=== PATIENT | female | born 1955 | race Caucasian/White ===

== ENCOUNTER 2018-08-10 09:08 | Outpatient (CLI) | payer BC ==
--- NOTE | 2018-08-10 13:34 | CT ---
CT ABDOMEN WITH AND WITHOUT IV CONTRAST: DATE: 08/10/2018. HISTORY: Cirrhosis. The patient is on transplant list. COMPARISON: Noncontrast CT abdomen on 07/09/2010 and prior contrasted study on 08/27/2005. FINDINGS: There are several punctate calcified granulomata at each lung base with linear areas of scarring and/ or atelectasis at each lung base. The liver is small in size with peripheral nodular contour related to cirrhosis. The portal veins de monstrate enhancement and are patent. However, there is dilatation of the main portal vein which jessa sures 1.8 cm in diameter. There is also recanalization of the supraumbilical vein. The spleen is imer rderline enlarged measuring 13.8 cm in craniocaudal dimensions. There is evidence of esophageal vari nancy with small varices in the region of the gastrohepatic ligament and adjacent to the spleen. The pancreas, bilateral adrenal glands, and kidneys as well as opacified bowel demonstrate a normal C T appearance. Vascular calcifications are seen in the abdominal aorta and involving the visualized proximal common iliac arteries. There is colonic diverticulosis. There is irregularity with defect in the superior end plate of the L3 vertebral likely related to a large Schmorl's node. There is a transitional vertebra at the lumbo sacral junction with sacralization of the L5 vertebral body. Calcifications are seen in the decompressed gallbladder lumen related to cholelithiasis. IMPRESSION: 1. Cirrhosis and evidence of portal hypertension. 2. Borderline splenomegaly. 3. Colonic diverticulosis. 4. Cholelithiasis. POS: [facility]
[2018-08-10] MEDS ORDERED: Iopamidol 370 76% 100 ML VIAL ONE (15:03)
== END 2018-08-10 09:09 | disposition home or self-care (01) ==
LOC: BICCT 09:08
PROVIDERS: ATTEND Internal Medicine Gastroenterology
DX: K74.60 Unspecified cirrhosis of liver (principal); K57.30 Diverticulosis of large intestine without perforation or abscess without bleeding; K80.20 Calculus of gallbladder without cholecystitis without obstruction; K76.6 Portal hypertension; Z76.82 Awaiting organ transplant status
CPT/HCPCS: 74170; 82565

== ENCOUNTER 2021-10-10 14:41 | Inpatient (IN) | payer MEDICARE, MEDICAID ==
[2021-10-10 15:28] LABS: #Eosinphils 0.2 thou/uL (0.0-0.7); #Lymphocytes 0.7 thou/uL (1.20-3.40); #Monocytes 0.3 thou/uL (0.11-0.59); #Neutrophils 2.5 thou/uL (1.40-6.50); %Basophils 1.3 % (0.0-1.0); %Eosinophils 5.1 % (0.0-10.0); %Lymphocytes 19.1 % (21.0-51.0); %Monocytes 7.9 % (0.0-10.0); %Neutrophils 66.5 % (42.0-75.0); Hemoglobin 10.4 g/dL (12.0-16.0); Mean Corpuscular HGB CONC 33.3 g/dL (32.0-36.0); Mean Corpuscular Hemoglobin 36.1 pg (27.0-31.0); RBC Distribution Width 15.6 % (11.5-14.5); Red Blood Cell (RBC) Count 2.87 mill/uL (4.20-5.40); White Blood Cell (WBC) Count 3.8 thou/uL (4.8-10.8)
[2021-10-10 15:51] LABS: ALT (SGPT) 19 U/L (8-55); AST (SGOT) 41 U/L (5-34); Albumin 2.2 g/dL (3.4-4.8); Alkaline Phosphatase 122 U/L (40-110); Anion Gap 9 mmol/L (10-20); BUN (Urea Nitrogen) 18 mg/dL (9.8-20.1); Calc. Creatinine Clearance 0 mL/min (70-130); Calcium 8.9 mg/dL (7.8-10.44); Carbon Dioxide 24 mmol/L (23-31); Chloride 112 mmol/L (98-107); Globulin 4.1 g/dL (2.4-3.5); Glucose 180 mg/dL (80-115); Potassium 3.5 mmol/L (3.5-5.1); Protein, Total 6.3 g/dL (5.8-8.1); Sodium 141 mmol/L (136-145)
[2021-10-10 16:03] LABS: Anisocytosis SLIGHT = 6-15 cells (100X) (0-5/hpf); MDiff Complete? YES; Macrocytosis SLIGHT = 6-15 cells (100X) (0-5/hpf); Mean Platelet Volume 7.6 fL (7.4-10.4); Platelet Count 73 thou/uL (130-400); Platelet Morphology Comment Appears Decreased; Polychromasia SLIGHT = 2-3 cells (100X) (0-2/hpf)
[2021-10-10 19:09] LABS: Bacteria/HPF 1+ HPF (None Seen); Bilirubin 1+ (Negative); Blood, Urine Negative (Negative); Clarity Turbid (Clear); Glucose, Urine (Dipstick) 70 mg/dL (Negative); Ketone, Urine Negative (Negative); Leukocyte 75 Leu/uL (Negative); Nitrite 2+ (Negative); Protein, Urine (Dipstick) 30 mg/dL (Neg-Trace); RBC/HPF 0-3 HPF (0-3); Specific Gravity, Urine 1.027 (1.002-1.036); Urobilinogen 3 mg/dL (Less than 2); WBC/HPF 21-50 HPF (0-3); pH, Urine 5.5 (5.0-9.0)
[2021-10-10] MEDS ORDERED: Furosemide 40 MG/4 ML VIAL ONE (19:23)
[2021-10-10] MEDS ORDERED: HYDROcodone/Acetaminophen 5/325 mg Tablet ONE (20:16)
[2021-10-10 21:07] LABS: Troponin I 0.019 ng/mL (< 0.028)
[2021-10-10 23:22] LABS: Troponin I 0.036 ng/mL (< 0.028)
[2021-10-10 23:56] LABS: SARS-CoV-2 NAA Rapid Test Not Detected (NotDetected)
[2021-10-11] MEDS ORDERED: HYDROcodone/Acetaminophen 5/325 mg Tablet ONE (00:11)
[2021-10-11 01:17] VITALS: BMI 37.4
[2021-10-11] MEDS ORDERED: Ondansetron ODT 4 MG TAB PO PRN (02:34)
[2021-10-11] MEDS ORDERED: Dextrose 5% in Water 1,000 ML IV PRN (02:34)
[2021-10-11] MEDS ORDERED: Ondansetron PF 4 MG/2 ML Vial IVP PRN (02:34)
[2021-10-11] MEDS ORDERED: Dextrose 50% Abboject 50 ML SYRINGE SLOW IVP PRN (02:34)
[2021-10-11] MEDS ORDERED: Acetaminophen 325 MG TAB PO PRN (02:34)
[2021-10-11] MEDS ORDERED: HumaLOG 300 UNITS/3 ML VIAL SC PRN ×2 (02:34)
[2021-10-11] MEDS ORDERED: Acetaminophen 650 MG Suppository PR PRN (02:34)
[2021-10-11] MEDS ORDERED: Electrolyte Replacement Protocol 1 EACH FS SCH (02:45)
[2021-10-11] MEDS ORDERED: Potassium Chloride 20 MEQ TAB PO SCH (02:45)
[2021-10-11] MEDS: HYDROcodone/Acetaminophen 10/325 mg Tablet PO PRN ×5 (03:34→23:29)
[2021-10-11 04:47] LABS: #Eosinphils 0.2 thou/uL (0.0-0.7); #Lymphocytes 0.8 thou/uL (1.20-3.40); #Monocytes 0.3 thou/uL (0.11-0.59); #Neutrophils 1.8 thou/uL (1.40-6.50); %Basophils 0.6 % (0.0-1.0); %Eosinophils 6.5 % (0.0-10.0); %Lymphocytes 24.4 % (21.0-51.0); %Monocytes 9.3 % (0.0-10.0); %Neutrophils 59.2 % (42.0-75.0); Hemoglobin 9.4 g/dL (12.0-16.0); Mean Corpuscular HGB CONC 33.3 g/dL (32.0-36.0); Mean Corpuscular Hemoglobin 36.7 pg (27.0-31.0); Mean Platelet Volume 8.2 fL (7.4-10.4); Platelet Count 59 thou/uL (130-400); RBC Distribution Width 15.6 % (11.5-14.5); Red Blood Cell (RBC) Count 2.55 mill/uL (4.20-5.40); White Blood Cell (WBC) Count 3.1 thou/uL (4.8-10.8)
[2021-10-11 05:19] LABS: Anion Gap 9 mmol/L (10-20); BUN (Urea Nitrogen) 16 mg/dL (9.8-20.1); Calc. Creatinine Clearance 58 mL/min (70-130); Calcium 8.5 mg/dL (7.8-10.44); Carbon Dioxide 23 mmol/L (23-31); Chloride 112 mmol/L (98-107); Glucose 168 mg/dL (80-115); Magnesium 1.7 mg/dL (1.6-2.6); Potassium 3.6 mmol/L (3.5-5.1); Sodium 140 mmol/L (136-145)
[2021-10-11] MEDS ORDERED: Magnesium 2 GM/50 ML 2 GM in Premix Bag 1 BAG IVPB SCH (07:00)
[2021-10-11] MEDS ORDERED: Enoxaparin Sodium 40 MG/0.4 ML SYRINGE SC SCH (09:00)
[2021-10-11] MEDS ORDERED: Furosemide 40 MG/4 ML VIAL SLOW IVP SCH ×3 (09:00→14:00)
[2021-10-11 09:22] LABS: Troponin I 0.019 ng/mL (< 0.028)
[2021-10-11] MEDS: Albumin 25% 25 GM/100 ML BOT IVPB SCH ×2 (13:32→18:34)
[2021-10-11] MEDS: Spironolactone 25 MG TAB PO SCH (17:06)
[2021-10-11] MEDS: Folic Acid 1 MG TAB PO SCH (20:51)
[2021-10-12] MEDS: Albumin 25% 25 GM/100 ML BOT IVPB SCH ×3 (00:49→14:04)
[2021-10-12] MEDS: HYDROcodone/Acetaminophen 10/325 mg Tablet PO PRN ×2 (05:31→10:16)
[2021-10-12 05:53] LABS: #Eosinphils 0.1 thou/uL (0.0-0.7); #Lymphocytes 0.4 thou/uL (1.20-3.40); #Monocytes 0.2 thou/uL (0.11-0.59); #Neutrophils 1.8 thou/uL (1.40-6.50); %Eosinophils 4.3 % (0.0-10.0); %Lymphocytes 16.7 % (21.0-51.0); %Monocytes 9.1 % (0.0-10.0); %Neutrophils 69.8 % (42.0-75.0); Hemoglobin 8.5 g/dL (12.0-16.0); Mean Corpuscular Hemoglobin 36.4 pg (27.0-31.0); Mean Platelet Volume 8.5 fL (7.4-10.4); Platelet Count 48 thou/uL (130-400); RBC Distribution Width 15.4 % (11.5-14.5); Red Blood Cell (RBC) Count 2.33 mill/uL (4.20-5.40); White Blood Cell (WBC) Count 2.6 thou/uL (4.8-10.8)
[2021-10-12 06:16] LABS: ALT (SGPT) 15 U/L (8-55); AST (SGOT) 32 U/L (5-34); Albumin 2.6 g/dL (3.4-4.8); Alkaline Phosphatase 68 U/L (40-110); Anion Gap 12 mmol/L (10-20); BUN (Urea Nitrogen) 17 mg/dL (9.8-20.1); Calc. Creatinine Clearance 59 mL/min (70-130); Calcium 9.3 mg/dL (7.8-10.44); Carbon Dioxide 23 mmol/L (23-31); Chloride 109 mmol/L (98-107); Globulin 3.3 g/dL (2.4-3.5); Glucose 168 mg/dL (80-115); Magnesium 1.9 mg/dL (1.6-2.6); Potassium 3.7 mmol/L (3.5-5.1); Protein, Total 5.9 g/dL (5.8-8.1); Sodium 140 mmol/L (136-145)
[2021-10-12] MEDS ORDERED: Potassium Chloride 20 MEQ TAB PO SCH (08:00)
[2021-10-12] MEDS: Folic Acid 1 MG TAB PO SCH (08:58)
[2021-10-12] MEDS: Spironolactone 25 MG TAB PO SCH (08:58)
[2021-10-12] MEDS ORDERED: Furosemide 40 MG/4 ML VIAL SLOW IVP SCH (09:00)
[2021-10-12 11:47] VITALS: BP 115/72; TEMP 97.5
[2021-10-12] MEDS ORDERED: Polyethylene Glycol 3350 17 GM Packet PO SCH (13:45)
[2021-10-13] MEDS ORDERED: Polyethylene Glycol 3350 17 GM Packet PO SCH (09:00)
== END 2021-10-12 16:00 | disposition home or self-care (01) | DRG 432 ==
LOC: ERS 14:41 → ERHOLD 19:52 → NEURO 10-11 00:31
PROVIDERS: ADMIT Student in an Organized Health Care Education/Training Program; ATTEND Internal Medicine
DX: K74.69 Other cirrhosis of liver (principal); I50.33 Acute on chronic diastolic (congestive) heart failure; I13.0 Hypertensive heart and chronic kidney disease with heart failure and stage 1 through stage 4 chronic kidney disease, or unspecified chronic kidney disease; N17.9 Acute kidney failure, unspecified; R18.8 Other ascites; D61.818 Other pancytopenia; Z20.822 Contact with and (suspected) exposure to COVID-19; K76.0 Fatty (change of) liver, not elsewhere classified; E78.5 Hyperlipidemia, unspecified; N18.32 Chronic kidney disease, stage 3b; E11.22 Type 2 diabetes mellitus with diabetic chronic kidney disease; L40.9 Psoriasis, unspecified; E11.69 Type 2 diabetes mellitus with other specified complication; E66.9 Obesity, unspecified; N64.53 Retraction of nipple; E87.6 Hypokalemia; E83.42 Hypomagnesemia; E87.8 Other disorders of electrolyte and fluid balance, not elsewhere classified; I35.0 Nonrheumatic aortic (valve) stenosis; Z87.890 Personal history of sex reassignment; Z88.8 Allergy status to other drugs, medicaments and biological substances; Z79.899 Other long term (current) drug therapy; Z68.39 Body mass index [BMI] 39.0-39.9, adult; Z91.14 Patient's other noncompliance with medication regimen
CPT/HCPCS: 36415; 36416; 71045; 80048; 80053; 81003; 81015; 82607; 82746; 83735; 83880; 84443; 84484; 85025; 93005; 93306; 97139; J1940; J3475; P9047; Q0162; U0002

== ENCOUNTER 2021-10-13 21:24 | Inpatient (IN) | payer MEDICARE, MEDICAID ==
[2021-10-13 22:13] LABS: #Eosinphils 0.1 thou/uL (0.0-0.7); #Lymphocytes 0.5 thou/uL (1.20-3.40); #Monocytes 0.4 thou/uL (0.11-0.59); #Neutrophils 3.8 thou/uL (1.40-6.50); %Basophils 0.2 % (0.0-1.0); %Eosinophils 1.7 % (0.0-10.0); %Lymphocytes 10.9 % (21.0-51.0); %Monocytes 9.2 % (0.0-10.0); %Neutrophils 77.9 % (42.0-75.0); Hemoglobin 9.5 g/dL (12.0-16.0); Mean Corpuscular HGB CONC 32.8 g/dL (32.0-36.0); Mean Corpuscular Hemoglobin 36.4 pg (27.0-31.0); Mean Platelet Volume 8.5 fL (7.4-10.4); Platelet Count 54 thou/uL (130-400); RBC Distribution Width 15.5 % (11.5-14.5); Red Blood Cell (RBC) Count 2.61 mill/uL (4.20-5.40); White Blood Cell (WBC) Count 4.8 thou/uL (4.8-10.8)
[2021-10-13 22:32] LABS: ALT (SGPT) 16 U/L (8-55); AST (SGOT) 33 U/L (5-34); Albumin 3.2 g/dL (3.4-4.8); Alkaline Phosphatase 75 U/L (40-110); Anion Gap 18 mmol/L (10-20); BUN (Urea Nitrogen) 22 mg/dL (9.8-20.1); Bilirubin, Total 6.3 mg/dL (0.2-1.2); Calc. Creatinine Clearance 0 mL/min (70-130); Calcium 9.8 mg/dL (7.8-10.44); Carbon Dioxide 19 mmol/L (23-31); Chloride 106 mmol/L (98-107); Globulin 3.7 g/dL (2.4-3.5); Glucose 161 mg/dL (80-115); Potassium 4.1 mmol/L (3.5-5.1); Protein, Total 6.9 g/dL (5.8-8.1); Sodium 139 mmol/L (136-145)
[2021-10-13 23:06] LABS: CKMB 5.6 ng/mL (0-6.6)
[2021-10-13 23:09] LABS: Acetaminophen Less than 6.0 mcg/mL (10.0-30.0); Alcohol Less than 10 mg/dL (Less than 10); Salicylate Less than 8.0 mg/dL (15.0-30.0)
[2021-10-13 23:52] LABS: Bilirubin 1+ (Negative); Blood, Urine 1+ (Negative); Clarity Extra Turbid (Clear); Glucose, Urine (Dipstick) Normal (Negative); Ketone, Urine Negative (Negative); Leukocyte 250 Leu/uL (Negative); Nitrite Negative (Negative); Protein, Urine (Dipstick) 50 mg/dL (Neg-Trace); Specific Gravity, Urine 1.024 (1.002-1.036); Squamous Epithelial Greater than 50 HPF (0-3); WBC/HPF Greater than 50 HPF (0-3)
[2021-10-13 23:58] LABS: Amphetamine Not Detected (NotDetected); Barbiturates Screen Not Detected (NotDetected); Benzodiazepine Screen Not Detected (NotDetected); Cocaine Metabolite Screen Not Detected (NotDetected); Methadone Not Detected (NotDetected); Methamphetamine Not Detected (NotDetected); Opiate Screen Detected (NotDetected); Oxycodone Screen Not Detected (NotDetected); Phencyclidine (PCP) Not Detected (NotDetected); THC/Cannabinoid Screen Not Detected (NotDetected); Tricyclic Screen Not Detected (NotDetected)
[2021-10-14 00:12] LABS: Bacteria/HPF 2+ HPF (None Seen)
[2021-10-14] MEDS ORDERED: Morphine 4 MG/ML VIAL ONE (00:31)
[2021-10-14] MEDS ORDERED: cefTRIAXone\\ROCEPHIN 1 GM VIAL ONE (00:32)
[2021-10-14 01:37] LABS: Troponin I 0.688 ng/mL (< 0.028)
[2021-10-14 01:47] LABS: SARS-CoV-2 NAA Rapid Test Not Detected (NotDetected)
[2021-10-14] MEDS ORDERED: Ondansetron PF 4 MG/2 ML Vial IVP PRN ×2 (02:30→03:32)
[2021-10-14] MEDS ORDERED: Ondansetron ODT 4 MG TAB SL PRN (02:30)
[2021-10-14] MEDS ORDERED: Acetaminophen 325 MG TAB PO PRN (02:30)
[2021-10-14] MEDS ORDERED: Nitroglycerin 0.4 MG TAB (25 Tab Bottle) SL PRN (03:34)
[2021-10-14] MEDS ORDERED: HumaLOG 300 UNITS/3 ML VIAL SC PRN (03:37)
[2021-10-14] MEDS ORDERED: Dextrose 5% in Water 1,000 ML IV PRN (03:37)
[2021-10-14] MEDS ORDERED: Dextrose 50% Abboject 50 ML SYRINGE SLOW IVP PRN (03:37)
[2021-10-14] MEDS: Albumin 25% 25 GM/100 ML BOT IVPB SCH ×3 (04:32→21:13)
[2021-10-14 05:07] LABS: INR-International Normal Ratio 1.7; Prothrombin Time 20.4 sec (12.0-14.7)
[2021-10-14 05:08] LABS: PTT 44.1 sec (22.9-36.1)
[2021-10-14 05:09] LABS: #Eosinphils 0.1 thou/uL (0.0-0.7); #Lymphocytes 0.8 thou/uL (1.20-3.40); #Monocytes 0.8 thou/uL (0.11-0.59); #Neutrophils 5.8 thou/uL (1.40-6.50); %Basophils 0.3 % (0.0-1.0); %Eosinophils 1.3 % (0.0-10.0); %Lymphocytes 10.4 % (21.0-51.0); %Monocytes 10.5 % (0.0-10.0); %Neutrophils 77.4 % (42.0-75.0); Hemoglobin 9.2 g/dL (12.0-16.0); Mean Corpuscular HGB CONC 32.8 g/dL (32.0-36.0); Mean Corpuscular Hemoglobin 36.7 pg (27.0-31.0); Mean Platelet Volume 8.2 fL (7.4-10.4); Platelet Count 58 thou/uL (130-400); RBC Distribution Width 15.7 % (11.5-14.5); White Blood Cell (WBC) Count 7.5 thou/uL (4.8-10.8)
[2021-10-14 05:22] LABS: ALT (SGPT) 17 U/L (8-55); AST (SGOT) 32 U/L (5-34); Albumin 3.3 g/dL (3.4-4.8); Alkaline Phosphatase 75 U/L (40-110); Anion Gap 16 mmol/L (10-20); BUN (Urea Nitrogen) 26 mg/dL (9.8-20.1); Bilirubin, Total 5.7 mg/dL (0.2-1.2); Calc. Creatinine Clearance 27 mL/min (70-130); Calcium 9.7 mg/dL (7.8-10.44); Carbon Dioxide 22 mmol/L (23-31); Chloride 106 mmol/L (98-107); Globulin 3.6 g/dL (2.4-3.5); Glucose 160 mg/dL (80-115); Potassium 4.4 mmol/L (3.5-5.1); Protein, Total 6.9 g/dL (5.8-8.1); Sodium 140 mmol/L (136-145)
[2021-10-14 05:35] LABS: Troponin I 0.816 ng/mL (< 0.028)
[2021-10-14 06:15] LABS: Anisocytosis SLIGHT = 6-15 cells (100X) (0-5/hpf); Elliptocytes SLIGHT = 2-5 cells (100X) (0-1/hpf); MDiff Complete? YES; Microcytosis SLIGHT = 6-15 cells (100X) (0-5/hpf); Sickle Cells SLIGHT = 1-5 cells (100X) (None Seen)
[2021-10-14] MEDS ORDERED: Furosemide 20 MG/2 ML VIAL SLOW IVP SCH (09:00)
[2021-10-14] MEDS ORDERED: Heparin 1,000 UNITS/ML VIAL ONE (09:40)
[2021-10-14 09:50] LABS: Troponin I 0.571 ng/mL (< 0.028)
[2021-10-14] MEDS ORDERED: Sodium Chloride 0.9% 1,000 ML IV SCH (12:30)
[2021-10-14] MEDS ORDERED: HYDROcodone/Acetaminophen 5/325 mg Tablet PO PRN (19:21)
[2021-10-14] MEDS: Metoclopramide HCl 10 MG/2 ML VIAL IVP PRN (21:14)
[2021-10-15] MEDS: Albumin 25% 25 GM/100 ML BOT IVPB SCH ×3 (03:25→18:26)
[2021-10-15 05:24] LABS: #Lymphocytes 0.5 thou/uL (1.20-3.40); #Monocytes 0.6 thou/uL (0.11-0.59); #Neutrophils 3.7 thou/uL (1.40-6.50); %Basophils 0.2 % (0.0-1.0); %Eosinophils 0.7 % (0.0-10.0); %Lymphocytes 9.8 % (21.0-51.0); %Monocytes 12.9 % (0.0-10.0); %Neutrophils 76.4 % (42.0-75.0); Hemoglobin 8.3 g/dL (12.0-16.0); Mean Corpuscular HGB CONC 32.5 g/dL (32.0-36.0); Mean Corpuscular Hemoglobin 37.2 pg (27.0-31.0); Mean Platelet Volume 9.1 fL (7.4-10.4); Platelet Count 44 thou/uL (130-400); RBC Distribution Width 15.8 % (11.5-14.5); Red Blood Cell (RBC) Count 2.23 mill/uL (4.20-5.40); White Blood Cell (WBC) Count 4.8 thou/uL (4.8-10.8)
[2021-10-15 05:44] LABS: ALT (SGPT) 17 U/L (8-55); AST (SGOT) 38 U/L (5-34); Albumin 3.9 g/dL (3.4-4.8); Alkaline Phosphatase 56 U/L (40-110); Anion Gap 22 mmol/L (10-20); BUN (Urea Nitrogen) 35 mg/dL (9.8-20.1); Bilirubin, Total 7.4 mg/dL (0.2-1.2); Calc. Creatinine Clearance 20 mL/min (70-130); Calcium 9.7 mg/dL (7.8-10.44); Carbon Dioxide 16 mmol/L (23-31); Cardiac Risk 4.7 (Less than 4.5); Chloride 106 mmol/L (98-107); Cholesterol 85 mg/dl (< 200 Desired); Globulin 3.4 g/dL (2.4-3.5); Glucose 163 mg/dL (80-115); HDL Cholesterol 18 mg/dL (>60 Neg Risk); LDL Cholesterol, Calculated 47 mg/dL; Potassium 5.1 mmol/L (3.5-5.1); Protein, Total 7.3 g/dL (5.8-8.1); Sodium 139 mmol/L (136-145); Triglycerides 101 mg/dL (Less than 150)
[2021-10-15] MEDS ORDERED: Sodium Bicarbonate 100 MEQ in Dextrose 5% in Water 1,000 ML IV SCH (10:15)
[2021-10-15] MEDS ORDERED: Sodium Chloride 0.9% 1,000 ML IV SCH (10:15)
[2021-10-15 10:40] LABS: Phosphorus 5.9 mg/dL (2.3-4.7)
[2021-10-15] MEDS: Acetaminophen 500 MG TAB PO PRN (15:23)
[2021-10-15] MEDS: Metoclopramide HCl 10 MG/2 ML VIAL IVP PRN (15:24)
[2021-10-16] MEDS: Albumin 25% 25 GM/100 ML BOT IVPB SCH ×2 (02:19→09:52)
[2021-10-16] MEDS: Acetaminophen 500 MG TAB PO PRN (02:19)
[2021-10-16] MEDS: Metoclopramide HCl 10 MG/2 ML VIAL IVP PRN (02:19)
[2021-10-16 05:29] LABS: #Eosinphils 0.1 thou/uL (0.0-0.7); #Lymphocytes 0.4 thou/uL (1.20-3.40); #Monocytes 0.3 thou/uL (0.11-0.59); #Neutrophils 2.5 thou/uL (1.40-6.50); %Basophils 0.3 % (0.0-1.0); %Eosinophils 1.8 % (0.0-10.0); %Lymphocytes 11.1 % (21.0-51.0); %Monocytes 9.1 % (0.0-10.0); %Neutrophils 77.7 % (42.0-75.0); Hemoglobin 8.1 g/dL (12.0-16.0); Mean Corpuscular HGB CONC 34.2 g/dL (32.0-36.0); Mean Corpuscular Hemoglobin 38.1 pg (27.0-31.0); Mean Platelet Volume 8.9 fL (7.4-10.4); Platelet Count 34 thou/uL (130-400); RBC Distribution Width 15.5 % (11.5-14.5); Red Blood Cell (RBC) Count 2.12 mill/uL (4.20-5.40); White Blood Cell (WBC) Count 3.2 thou/uL (4.8-10.8)
[2021-10-16 05:51] LABS: Phosphorus 5.3 mg/dL (2.3-4.7)
[2021-10-16 05:52] LABS: ALT (SGPT) 16 U/L (8-55); AST (SGOT) 33 U/L (5-34); Albumin 4.2 g/dL (3.4-4.8); Alkaline Phosphatase 57 U/L (40-110); Anion Gap 21 mmol/L (10-20); BUN (Urea Nitrogen) 46 mg/dL (9.8-20.1); Bilirubin, Total 7.2 mg/dL (0.2-1.2); Calc. Creatinine Clearance 16 mL/min (70-130); Carbon Dioxide 19 mmol/L (23-31); Chloride 103 mmol/L (98-107); Globulin 3.1 g/dL (2.4-3.5); Glucose 158 mg/dL (80-115); Potassium 4.3 mmol/L (3.5-5.1); Protein, Total 7.3 g/dL (5.8-8.1); Sodium 139 mmol/L (136-145)
[2021-10-16] MEDS ORDERED: Metoclopramide HCl 10 MG/2 ML VIAL IVP PRN (11:00)
[2021-10-16] MEDS ORDERED: Sodium Bicarbonate 2.5 MEQ/5 ML VIAL ONE (14:19)
[2021-10-16] MEDS: Ondansetron PF 4 MG/2 ML Vial IVP PRN ×2 (16:27→21:21)
[2021-10-17] MEDS: Ondansetron PF 4 MG/2 ML Vial IVP PRN ×2 (06:01→23:27)
[2021-10-17 06:06] LABS: #Eosinphils 0.1 thou/uL (0.0-0.7); #Lymphocytes 0.4 thou/uL (1.20-3.40); #Monocytes 0.4 thou/uL (0.11-0.59); #Neutrophils 2.2 thou/uL (1.40-6.50); %Basophils 0.1 % (0.0-1.0); %Lymphocytes 13.3 % (21.0-51.0); %Monocytes 11.2 % (0.0-10.0); %Neutrophils 72.4 % (42.0-75.0); Hemoglobin 7.7 g/dL (12.0-16.0); Mean Corpuscular HGB CONC 33.1 g/dL (32.0-36.0); Mean Corpuscular Hemoglobin 37.5 pg (27.0-31.0); Mean Platelet Volume 8.9 fL (7.4-10.4); Platelet Count 43 thou/uL (130-400); RBC Distribution Width 16.2 % (11.5-14.5); Red Blood Cell (RBC) Count 2.06 mill/uL (4.20-5.40); White Blood Cell (WBC) Count 3.1 thou/uL (4.8-10.8)
[2021-10-17 06:26] LABS: ALT (SGPT) 18 U/L (8-55); AST (SGOT) 40 U/L (5-34); Albumin 3.8 g/dL (3.4-4.8); Alkaline Phosphatase 57 U/L (40-110); Anion Gap 17 mmol/L (10-20); BUN (Urea Nitrogen) 54 mg/dL (9.8-20.1); Bilirubin, Total 5.9 mg/dL (0.2-1.2); Calc. Creatinine Clearance 14 mL/min (70-130); Calcium 9.9 mg/dL (7.8-10.44); Carbon Dioxide 20 mmol/L (23-31); Chloride 105 mmol/L (98-107); Globulin 3.2 g/dL (2.4-3.5); Glucose 157 mg/dL (80-115); Potassium 4.1 mmol/L (3.5-5.1); Sodium 138 mmol/L (136-145)
[2021-10-17] MEDS: Acetaminophen 500 MG TAB PO PRN (23:27)
[2021-10-18 01:12] LABS: HBSAg Index 0.35 S/CO (0-0.99); Hep B Surf Ag Non-Reactive S/CO (NonReactive)
[2021-10-18] MEDS: Ondansetron PF 4 MG/2 ML Vial IVP PRN ×2 (05:47→20:40)
[2021-10-18 06:28] LABS: Anion Gap 19 mmol/L (10-20); BUN (Urea Nitrogen) 46 mg/dL (9.8-20.1); Calc. Creatinine Clearance 16 mL/min (70-130); Calcium 9.4 mg/dL (7.8-10.44); Carbon Dioxide 21 mmol/L (23-31); Chloride 102 mmol/L (98-107); Glucose 165 mg/dL (80-115); Potassium 3.7 mmol/L (3.5-5.1); Sodium 138 mmol/L (136-145)
[2021-10-18 06:48] LABS: HIV (1/2) Antibody/Antigen Non-Reactive (NonReactive); HIV 1/2 INDEX 0.09 S/CO (<1.00)
[2021-10-18] MEDS: EPOETIN ALFA-EPBX (ESRD) 10,000 UNIT/ML VIAL SC SCH (12:22)
[2021-10-19] MEDS: Ondansetron PF 4 MG/2 ML Vial IVP PRN ×2 (05:11→20:02)
[2021-10-19 05:27] LABS: Anion Gap 19 mmol/L (10-20); BUN (Urea Nitrogen) 52 mg/dL (9.8-20.1); Calc. Creatinine Clearance 14 mL/min (70-130); Calcium 9.6 mg/dL (7.8-10.44); Carbon Dioxide 21 mmol/L (23-31); Chloride 103 mmol/L (98-107); Glucose 181 mg/dL (80-115); Potassium 3.7 mmol/L (3.5-5.1); Sodium 139 mmol/L (136-145)
[2021-10-19] MEDS: Nadolol 40 MG TAB PO SCH (09:09)
[2021-10-19] MEDS ORDERED: Lidocaine 1% PF 5 ML VIAL ONE (12:28)
[2021-10-19] MEDS ORDERED: Sodium Bicarbonate 2.5 MEQ/5 ML VIAL ONE (12:28)
[2021-10-19 13:10] LABS: Hemoglobin 8.5 g/dL (12.0-16.0)
[2021-10-19] MEDS: Acetaminophen 500 MG TAB PO PRN (20:02)
[2021-10-20 05:46] LABS: Anion Gap 21 mmol/L (10-20); BUN (Urea Nitrogen) 58 mg/dL (9.8-20.1); Calc. Creatinine Clearance 13 mL/min (70-130); Calcium 9.8 mg/dL (7.8-10.44); Carbon Dioxide 19 mmol/L (23-31); Chloride 103 mmol/L (98-107); Glucose 159 mg/dL (80-115); Potassium 4.1 mmol/L (3.5-5.1); Sodium 139 mmol/L (136-145)
[2021-10-20] MEDS: Nadolol 40 MG TAB PO SCH (10:01)
[2021-10-20] MEDS: HumaLOG 300 UNITS/3 ML VIAL SC PRN (11:29)
[2021-10-20] MEDS ORDERED: Phytonadione 5 MG TAB PO SCH (13:34)
[2021-10-20] MEDS ORDERED: Sodium Chloride 0.9% 250 ML IVPB SCH (14:20)
[2021-10-20 18:05] LABS: INR-International Normal Ratio 1.9; PTT 49.8 sec (22.9-36.1); Prothrombin Time 22.4 sec (12.0-14.7)
[2021-10-20 18:39] LABS: SARS-CoV-2 PCR by NAA Not Detected (NotDetected)
[2021-10-20] MEDS: Acetaminophen 500 MG TAB PO PRN (23:53)
[2021-10-21] MEDS ORDERED: Phytonadione 5 MG TAB PO SCH (09:00)
[2021-10-21] MEDS: Nadolol 40 MG TAB PO SCH (10:47)
[2021-10-21 16:41] LABS: Anion Gap 16 mmol/L (10-20); BUN (Urea Nitrogen) 63 mg/dL (9.8-20.1); Calc. Creatinine Clearance 11 mL/min (70-130); Calcium 9.5 mg/dL (7.8-10.44); Carbon Dioxide 23 mmol/L (23-31); Chloride 102 mmol/L (98-107); Glucose 178 mg/dL (80-115); Potassium 4.2 mmol/L (3.5-5.1); Sodium 137 mmol/L (136-145)
[2021-10-21] MEDS ORDERED: Midodrine HCl 5 MG TAB PO SCH (20:04)
[2021-10-22 05:23] LABS: ALT (SGPT) 20 U/L (8-55); AST (SGOT) 31 U/L (5-34); Albumin 3.5 g/dL (3.4-4.8); Alkaline Phosphatase 71 U/L (40-110); Anion Gap 18 mmol/L (10-20); BUN (Urea Nitrogen) 67 mg/dL (9.8-20.1); Bilirubin, Total 5.2 mg/dL (0.2-1.2); Calc. Creatinine Clearance 10 mL/min (70-130); Calcium 9.7 mg/dL (7.8-10.44); Carbon Dioxide 21 mmol/L (23-31); Chloride 101 mmol/L (98-107); Glucose 148 mg/dL (80-115); Potassium 4.3 mmol/L (3.5-5.1); Protein, Total 6.5 g/dL (5.8-8.1); Sodium 136 mmol/L (136-145)
[2021-10-22] MEDS: Ondansetron PF 4 MG/2 ML Vial IVP PRN (08:38)
[2021-10-22 08:58] LABS: Hemoglobin 8.4 g/dL (12.0-16.0); Mean Corpuscular HGB CONC 30.6 g/dL (32.0-36.0); Mean Corpuscular Hemoglobin 35.7 pg (27.0-31.0); Mean Platelet Volume 14.3 fL (7.4-10.4); Platelet Count 6 thou/uL (130-400); RBC Distribution Width 18.6 % (11.5-14.5); Red Blood Cell (RBC) Count 2.36 mill/uL (4.20-5.40); White Blood Cell (WBC) Count 2.5 thou/uL (4.8-10.8)
[2021-10-22 09:16] LABS: #Eosinphils 0.2 thou/uL (0.0-0.7); #Lymphocytes 0.4 thou/uL (1.20-3.40); #Monocytes 0.3 thou/uL (0.11-0.59); #Neutrophils 1.6 thou/uL (1.40-6.50); %Basophils 0.5 % (0.0-1.0); %Eosinophils 7.1 % (0.0-10.0); %Monocytes 11.4 % (0.0-10.0); %Neutrophils 63.9 % (42.0-75.0); Anisocytosis MODERATE=16-30 cells (100X) (0-5/hpf); Bite Cells SLIGHT = 2-5 cells (100X) (0-1/hpf); Burr Cells SLIGHT = 2-5 cells (100X) (0-1/hpf); MDiff Complete? YES; Platelet Morphology Comment Appears Decreased; Polychromasia MODERATE = 3-4 cells (100X) (0-2/hpf); Schistocytes SLIGHT = 2-5 cells (100X) (0-1/hpf)
[2021-10-22 11:38] LABS: Mean Corpuscular Hemoglobin 44.3 pg (27.0-31.0); Mean Platelet Volume 4.7 fL (7.4-10.4); Platelet Count 22 thou/uL (130-400); RBC Distribution Width 18.8 % (11.5-14.5); Red Blood Cell (RBC) Count 1.81 mill/uL (4.20-5.40); White Blood Cell (WBC) Count 2.3 thou/uL (4.8-10.8)
[2021-10-22] MEDS ORDERED: Sodium Chloride 0.9% 20 ML ONE (11:57)
[2021-10-22] MEDS ORDERED: EPINEPHrine 1 MG/ML AMP ONE (11:57)
[2021-10-22] MEDS ORDERED: Heparin 10,000 UNITS/ 10 ML VIAL ONE ×2 (11:57→12:17)
[2021-10-22] MEDS ORDERED: Bupivacaine PF 0.5% 30 ML VIAL ONE (11:57)
[2021-10-22] MEDS ORDERED: Propofol 500 MG/50 ML VIAL ONE (12:12)
[2021-10-22 12:26] LABS: Anisocytosis MODERATE=16-30 cells (100X) (0-5/hpf); Band 4 % (5-11); Bite Cells SLIGHT = 2-5 cells (100X) (0-1/hpf); Eosinophils 8 % (0-10); Lymphocytes 22 % (21-51); MDiff Complete? YES; Metamyelocyte 2 % (0-0); Monocytes 4 % (0-10); Neutrophil 60 % (42-75); Ovalocytes SLIGHT = 2-5 cells (100X) (0-1/hpf); Platelet Morphology Comment Appears Decreased; Polychromasia SLIGHT = 2-3 cells (100X) (0-2/hpf); Schistocytes SLIGHT = 2-5 cells (100X) (0-1/hpf)
[2021-10-22] MEDS ORDERED: Promethazine HCl 25 MG/ML VIAL IVPB PRN ×2 (12:38→12:42)
[2021-10-22] MEDS ORDERED: Promethazine HCl 25 MG/ML VIAL IM PRN ×2 (12:38→12:42)
[2021-10-22] MEDS ORDERED: Ondansetron HCl/PF 4 MG/2 ML Vial IVP PRN ×2 (12:38→12:42)
[2021-10-22] MEDS ORDERED: Meperidine HCl/PF 25 MG/ML VIAL SLOW IVP PRN ×2 (12:38→12:42)
[2021-10-22] MEDS ORDERED: PROPOFOL 200 MG/20 ML VIAL ONE (12:50)
[2021-10-22] MEDS ORDERED: Lidocaine 1% PF 5 ML VIAL ONE (12:50)
[2021-10-22] MEDS ORDERED: ePHEDrine 50 MG/ML VIAL ONE (12:50)
[2021-10-22] MEDS ORDERED: PHENYLEPHRINE-NS 100 MCG/ML 10 ML SYRINGE ONE (12:50)
[2021-10-22] MEDS ORDERED: Glycopyrrolate 0.2 MG/ML 5 ML SYRINGE ONE (12:50)
[2021-10-23] MEDS: Acetaminophen 500 MG TAB PO PRN ×2 (00:06→20:58)
[2021-10-23] MEDS ORDERED: traMADol HCl 50 MG TAB PO SCH (00:30)
[2021-10-23 06:05] LABS: #Eosinphils 0.2 thou/uL (0.0-0.7); #Lymphocytes 0.7 thou/uL (1.20-3.40); #Monocytes 0.7 thou/uL (0.11-0.59); #Neutrophils 3.4 thou/uL (1.40-6.50); %Basophils 0.2 % (0.0-1.0); %Eosinophils 4.2 % (0.0-10.0); %Lymphocytes 13.8 % (21.0-51.0); %Monocytes 14.1 % (0.0-10.0); %Neutrophils 67.7 % (42.0-75.0); Hemoglobin 8.3 g/dL (12.0-16.0); Mean Corpuscular HGB CONC 33.1 g/dL (32.0-36.0); Mean Corpuscular Hemoglobin 36.9 pg (27.0-31.0); Mean Platelet Volume 8.8 fL (7.4-10.4); Platelet Count 60 thou/uL (130-400); RBC Distribution Width 18.9 % (11.5-14.5); Red Blood Cell (RBC) Count 2.25 mill/uL (4.20-5.40)
[2021-10-23 06:23] LABS: Anion Gap 20 mmol/L (10-20); BUN (Urea Nitrogen) 47 mg/dL (9.8-20.1); Calc. Creatinine Clearance 14 mL/min (70-130); Calcium 9.4 mg/dL (7.8-10.44); Carbon Dioxide 23 mmol/L (23-31); Chloride 99 mmol/L (98-107); Glucose 144 mg/dL (80-115); Potassium 4.3 mmol/L (3.5-5.1); Sodium 138 mmol/L (136-145)
[2021-10-23] MEDS: Nadolol 40 MG TAB PO SCH (09:37)
[2021-10-23] MEDS ORDERED: Heparin 10,000 UNITS/ 10 ML VIAL ONE ×2 (10:37→11:07)
[2021-10-23] MEDS ORDERED: Tuberculin PPD 0.1 ML VIAL I-DERMAL SCH ×2 (12:00)
[2021-10-23 17:54] LABS: ALT (SGPT) 17 U/L (8-55); AST (SGOT) 30 U/L (5-34); Albumin 3.5 g/dL (3.4-4.8); Alkaline Phosphatase 70 U/L (40-110); Bilirubin, Direct 2.5 mg/dL (0.1-0.3); Protein, Total 6.4 g/dL (5.8-8.1)
[2021-10-23 18:15] LABS: HBCM Index 0.07 S/CO (0-0.79); HBSAg Index 0.33 S/CO (0-0.99); HIV (1/2) Antibody/Antigen Non-Reactive (NonReactive); HIV 1/2 INDEX 0.07 S/CO (<1.00); Hep A IgM AB Non-Reactive (NonReactive); Hep B Surf Ag Non-Reactive S/CO (NonReactive); Hep C IgG Ab Non-Reactive (NonReactive); Hep C Index 0.16 S/CO (0-0.79); Hepatitis B Core IgM Abs Non-Reactive (NonReactive)
[2021-10-24 05:39] LABS: #Eosinphils 0.2 thou/uL (0.0-0.7); #Lymphocytes 0.8 thou/uL (1.20-3.40); #Monocytes 0.7 thou/uL (0.11-0.59); #Neutrophils 3.1 thou/uL (1.40-6.50); %Basophils 0.5 % (0.0-1.0); %Lymphocytes 15.6 % (21.0-51.0); %Monocytes 14.2 % (0.0-10.0); %Neutrophils 64.8 % (42.0-75.0); Mean Corpuscular HGB CONC 32.9 g/dL (32.0-36.0); Mean Corpuscular Hemoglobin 36.7 pg (27.0-31.0); Mean Platelet Volume 8.7 fL (7.4-10.4); Platelet Count 60 thou/uL (130-400); Red Blood Cell (RBC) Count 2.17 mill/uL (4.20-5.40); White Blood Cell (WBC) Count 4.8 thou/uL (4.8-10.8)
[2021-10-24 05:48] LABS: Anion Gap 18 mmol/L (10-20); BUN (Urea Nitrogen) 39 mg/dL (9.8-20.1); Calc. Creatinine Clearance 15 mL/min (70-130); Calcium 9.2 mg/dL (7.8-10.44); Carbon Dioxide 24 mmol/L (23-31); Chloride 97 mmol/L (98-107); Glucose 186 mg/dL (80-115); Potassium 3.7 mmol/L (3.5-5.1); Sodium 135 mmol/L (136-145)
[2021-10-24] MEDS: Nadolol 40 MG TAB PO SCH (09:08)
[2021-10-24] MEDS: HumaLOG 300 UNITS/3 ML VIAL SC PRN (11:32)
[2021-10-24] MEDS: Acetaminophen 500 MG TAB PO PRN (20:26)
[2021-10-25] MEDS: Acetaminophen 500 MG TAB PO PRN ×2 (03:16→21:35)
[2021-10-25 06:17] LABS: Anion Gap 17 mmol/L (10-20); BUN (Urea Nitrogen) 47 mg/dL (9.8-20.1); Calc. Creatinine Clearance 13 mL/min (70-130); Calcium 9.6 mg/dL (7.8-10.44); Carbon Dioxide 26 mmol/L (23-31); Chloride 98 mmol/L (98-107); Glucose 128 mg/dL (80-115); Sodium 137 mmol/L (136-145)
[2021-10-25] MEDS ORDERED: Heparin 10,000 UNITS/ 10 ML VIAL ONE (10:40)
[2021-10-25] MEDS: Nadolol 40 MG TAB PO SCH (12:56)
[2021-10-25] MEDS ORDERED: READ PPD TEST SITE PO SCH (13:00)
[2021-10-25] MEDS: EPOETIN ALFA-EPBX (ESRD) 10,000 UNIT/ML VIAL SC SCH (13:38)
[2021-10-25 16:06] LABS: HBSAB Concentration Less than 8.00 mIU/mL; Hep B Surf AB Non-Reactive (NonReactive)
[2021-10-26 04:56] LABS: Hemoglobin 8.4 g/dL (12.0-16.0); Platelet Count 58 thou/uL (130-400)
[2021-10-26 05:15] LABS: Anion Gap 16 mmol/L (10-20); BUN (Urea Nitrogen) 30 mg/dL (9.8-20.1); Calc. Creatinine Clearance 17 mL/min (70-130); Calcium 9.2 mg/dL (7.8-10.44); Carbon Dioxide 26 mmol/L (23-31); Chloride 99 mmol/L (98-107); Glucose 144 mg/dL (80-115); Potassium 3.7 mmol/L (3.5-5.1); Sodium 137 mmol/L (136-145)
[2021-10-26] MEDS: Nadolol 40 MG TAB PO SCH (09:18)
[2021-10-26] MEDS: Acetaminophen 500 MG TAB PO PRN ×2 (09:18→17:00)
[2021-10-26] MEDS: Lorazepam 0.5 MG TAB PO PRN (18:01)
[2021-10-26] MEDS ORDERED: Furosemide 40 MG/4 ML VIAL SLOW IVP SCH (18:30)
[2021-10-27] MEDS: Acetaminophen 500 MG TAB PO PRN ×2 (05:18→20:15)
[2021-10-27 07:03] LABS: #Basophils 0.1 thou/uL (0.0-0.2); #Eosinphils 0.3 thou/uL (0.0-0.7); #Lymphocytes 0.7 thou/uL (1.20-3.40); #Monocytes 0.6 thou/uL (0.11-0.59); #Neutrophils 3.6 thou/uL (1.40-6.50); %Eosinophils 5.6 % (0.0-10.0); %Lymphocytes 13.8 % (21.0-51.0); %Neutrophils 68.7 % (42.0-75.0); Hemoglobin 9.1 g/dL (12.0-16.0); Mean Corpuscular HGB CONC 31.5 g/dL (32.0-36.0); Mean Corpuscular Hemoglobin 36.1 pg (27.0-31.0); Platelet Count 68 thou/uL (130-400); RBC Distribution Width 19.5 % (11.5-14.5); Red Blood Cell (RBC) Count 2.52 mill/uL (4.20-5.40); White Blood Cell (WBC) Count 5.3 thou/uL (4.8-10.8)
[2021-10-27 07:20] LABS: Anion Gap 18 mmol/L (10-20); BUN (Urea Nitrogen) 38 mg/dL (9.8-20.1); Calc. Creatinine Clearance 15 mL/min (70-130); Calcium 9.6 mg/dL (7.8-10.44); Carbon Dioxide 24 mmol/L (23-31); Chloride 99 mmol/L (98-107); Glucose 103 mg/dL (80-115); Potassium 3.9 mmol/L (3.5-5.1); Sodium 137 mmol/L (136-145)
[2021-10-27] MEDS ORDERED: Spironolactone 25 MG TAB PO SCH (08:00)
[2021-10-27 08:31] LABS: MDiff Complete? YES; Macrocytosis SLIGHT = 6-15 cells (100X) (0-5/hpf); Platelet Morphology Comment Appears Decreased; Polychromasia SLIGHT = 2-3 cells (100X) (0-2/hpf)
[2021-10-27] MEDS: Nadolol 40 MG TAB PO SCH (09:00)
[2021-10-27] MEDS: Lorazepam 0.5 MG TAB PO PRN ×2 (09:09→20:15)
[2021-10-27] MEDS ORDERED: Albumin 25% 25 GM/100 ML BOT IVPB PRN (10:42)
[2021-10-27 20:03] LABS: SARS-CoV-2 PCR by NAA Not Detected (NotDetected)
[2021-10-28] MEDS: Acetaminophen 500 MG TAB PO PRN (04:01)
[2021-10-28] MEDS: Lorazepam 0.5 MG TAB PO PRN ×2 (04:02→09:48)
[2021-10-28 04:27] LABS: Hemoglobin 8.2 g/dL (12.0-16.0); Platelet Count 49 thou/uL (130-400)
[2021-10-28 04:47] LABS: Anion Gap 16 mmol/L (10-20); BUN (Urea Nitrogen) 24 mg/dL (9.8-20.1); Calc. Creatinine Clearance 20 mL/min (70-130); Calcium 9.2 mg/dL (7.8-10.44); Carbon Dioxide 27 mmol/L (23-31); Chloride 98 mmol/L (98-107); Glucose 179 mg/dL (80-115); Potassium 3.7 mmol/L (3.5-5.1); Sodium 137 mmol/L (136-145)
[2021-10-28] MEDS: Nadolol 40 MG TAB PO SCH (09:44)
[2021-10-28] MEDS: Albumin 25% 25 GM/100 ML BOT IVPB SCH ×2 (13:52→18:43)
[2021-10-28 17:16] LABS: #Eosinphils 0.2 thou/uL (0.0-0.7); #Lymphocytes 0.6 thou/uL (1.20-3.40); #Monocytes 0.5 thou/uL (0.11-0.59); #Neutrophils 2.7 thou/uL (1.40-6.50); %Basophils 0.3 % (0.0-1.0); %Eosinophils 4.5 % (0.0-10.0); %Lymphocytes 15.3 % (21.0-51.0); %Neutrophils 66.8 % (42.0-75.0); Hemoglobin 8.3 g/dL (12.0-16.0); Mean Corpuscular HGB CONC 31.6 g/dL (32.0-36.0); Mean Corpuscular Hemoglobin 36.7 pg (27.0-31.0); Mean Platelet Volume 8.1 fL (7.4-10.4); Platelet Count 47 thou/uL (130-400); RBC Distribution Width 19.8 % (11.5-14.5); Red Blood Cell (RBC) Count 2.26 mill/uL (4.20-5.40); White Blood Cell (WBC) Count 4.1 thou/uL (4.8-10.8)
[2021-10-28 17:23] LABS: INR-International Normal Ratio 1.9; Prothrombin Time 22.2 sec (12.0-14.7)
[2021-10-28 17:35] LABS: ALT (SGPT) 9 U/L (8-55); AST (SGOT) 34 U/L (5-34); Albumin 3.9 g/dL (3.4-4.8); Alkaline Phosphatase 65 U/L (40-110); Anion Gap 15 mmol/L (10-20); BUN (Urea Nitrogen) 26 mg/dL (9.8-20.1); Bilirubin, Total 7.4 mg/dL (0.2-1.2); Calc. Creatinine Clearance 17 mL/min (70-130); Calcium 9.3 mg/dL (7.8-10.44); Carbon Dioxide 27 mmol/L (23-31); Chloride 99 mmol/L (98-107); Globulin 2.8 g/dL (2.4-3.5); Glucose 140 mg/dL (80-115); Potassium 3.8 mmol/L (3.5-5.1); Protein, Total 6.7 g/dL (5.8-8.1); Sodium 137 mmol/L (136-145)
[2021-10-28 17:39] LABS: Troponin I 0.051 ng/mL (< 0.028)
[2021-10-28] MEDS ORDERED: Sodium Chloride 0.9% 500 ML IV SCH (17:45)
[2021-10-29] MEDS: Albumin 25% 25 GM/100 ML BOT IVPB SCH ×2 (02:45→06:25)
[2021-10-29] MEDS: Nadolol 40 MG TAB PO SCH (09:30)
[2021-10-29] MEDS: Lorazepam 0.5 MG TAB PO PRN (09:30)
[2021-10-29 15:05] LABS: Hemoglobin 8.3 g/dL (12.0-16.0); Platelet Count 43 thou/uL (130-400)
[2021-10-29 15:25] LABS: Anion Gap 19 mmol/L (10-20); BUN (Urea Nitrogen) 33 mg/dL (9.8-20.1); Calc. Creatinine Clearance 15 mL/min (70-130); Calcium 10.1 mg/dL (7.8-10.44); Carbon Dioxide 25 mmol/L (23-31); Chloride 98 mmol/L (98-107); Glucose 124 mg/dL (80-115); Potassium 4.1 mmol/L (3.5-5.1); Sodium 138 mmol/L (136-145)
[2021-10-30 01:07] LABS: Bacteria/HPF None Seen HPF (None Seen); Bilirubin 1+ (Negative); Blood, Urine 3+ (Negative); Clarity Extra Turbid (Clear); Glucose, Urine (Dipstick) 50 mg/dL (Negative); Ketone, Urine Negative (Negative); Leukocyte 500 Leu/uL (Negative); Nitrite Negative (Negative); Protein, Urine (Dipstick) 300 mg/dL (Neg-Trace); RBC/HPF Greater than 50 HPF (0-3); Specific Gravity, Urine 1.029 (1.002-1.036); Squamous Epithelial Greater than 50 HPF (0-3); Urobilinogen Normal mg/dL (Less than 2); WBC/HPF Greater than 50 HPF (0-3)
[2021-10-30 01:17] LABS: Yeast-Budding 2+ HPF (None Seen); Yeast-Hyphae 4+ HPF (None Seen)
[2021-10-30 01:19] LABS: Urine Culture Reflex No No
[2021-10-30] MEDS: Lorazepam 0.5 MG TAB PO PRN ×2 (02:03→15:59)
[2021-10-30 04:27] LABS: Hemoglobin 8.5 g/dL (12.0-16.0); Platelet Count 40 thou/uL (130-400)
[2021-10-30 04:46] LABS: Anion Gap 19 mmol/L (10-20); BUN (Urea Nitrogen) 38 mg/dL (9.8-20.1); Calc. Creatinine Clearance 14 mL/min (70-130); Calcium 10.4 mg/dL (7.8-10.44); Carbon Dioxide 25 mmol/L (23-31); Chloride 98 mmol/L (98-107); Glucose 113 mg/dL (80-115); Potassium 4.1 mmol/L (3.5-5.1); Sodium 138 mmol/L (136-145)
[2021-10-30] MEDS: Nadolol 40 MG TAB PO SCH (08:45)
[2021-10-30] MEDS ORDERED: Heparin 10,000 UNITS/ 10 ML VIAL ONE (09:44)
[2021-10-30] MEDS ORDERED: Sodium Chloride 0.9% 100 ML IVPB PRN (13:56)
[2021-10-30 14:38] VITALS: BMI 34.9
[2021-10-30] MEDS: Ondansetron PF 4 MG/2 ML Vial IVP PRN (15:20)
[2021-10-30] MEDS: Rifaximin 550 MG TAB PO SCH (21:01)
[2021-10-31] MEDS ORDERED: Senokot 8.6 MG TAB PO PRN (00:04)
[2021-10-31] MEDS: Ondansetron PF 4 MG/2 ML Vial IVP PRN ×2 (04:07→08:51)
[2021-10-31 04:20] LABS: Platelet Count 47 thou/uL (130-400)
[2021-10-31 04:44] LABS: Anion Gap 17 mmol/L (10-20); BUN (Urea Nitrogen) 23 mg/dL (9.8-20.1); Calc. Creatinine Clearance 20 mL/min (70-130); Carbon Dioxide 27 mmol/L (23-31); Chloride 97 mmol/L (98-107); Glucose 89 mg/dL (80-115); Potassium 3.9 mmol/L (3.5-5.1); Sodium 137 mmol/L (136-145)
[2021-10-31] MEDS: Rifaximin 550 MG TAB PO SCH ×2 (08:40→21:42)
[2021-10-31] MEDS: Nadolol 40 MG TAB PO SCH (08:41)
[2021-10-31] MEDS: Lorazepam 0.5 MG TAB PO PRN ×2 (17:42→23:00)
[2021-11-01] MEDS: Lorazepam 0.5 MG TAB PO PRN ×2 (04:15→21:05)
[2021-11-01 05:26] LABS: Hemoglobin 8.6 g/dL (12.0-16.0); Platelet Count 47 thou/uL (130-400)
[2021-11-01 05:40] LABS: Anion Gap 18 mmol/L (10-20); BUN (Urea Nitrogen) 28 mg/dL (9.8-20.1); Calc. Creatinine Clearance 17 mL/min (70-130); Calcium 9.8 mg/dL (7.8-10.44); Carbon Dioxide 25 mmol/L (23-31); Chloride 97 mmol/L (98-107); Glucose 140 mg/dL (80-115); Sodium 136 mmol/L (136-145)
[2021-11-01] MEDS: Nadolol 40 MG TAB PO SCH (09:47)
[2021-11-01] MEDS: Rifaximin 550 MG TAB PO SCH ×2 (09:47→21:05)
[2021-11-01] MEDS: EPOETIN ALFA-EPBX (ESRD) 10,000 UNIT/ML VIAL SC SCH (13:35)
[2021-11-02] MEDS: Lorazepam 0.5 MG TAB PO PRN (04:40)
[2021-11-02] MEDS: Nadolol 40 MG TAB PO SCH (09:18)
[2021-11-02] MEDS: Rifaximin 550 MG TAB PO SCH ×2 (09:18→21:02)
[2021-11-02 13:57] LABS: Hemoglobin 8.1 g/dL (12.0-16.0); Platelet Count 40 thou/uL (130-400)
[2021-11-02 14:15] LABS: Anion Gap 17 mmol/L (10-20); BUN (Urea Nitrogen) 20 mg/dL (9.8-20.1); Calc. Creatinine Clearance 20 mL/min (70-130); Calcium 9.5 mg/dL (7.8-10.44); Carbon Dioxide 26 mmol/L (23-31); Chloride 97 mmol/L (98-107); Glucose 149 mg/dL (80-115); Potassium 3.7 mmol/L (3.5-5.1); Sodium 136 mmol/L (136-145)
[2021-11-03 05:20] LABS: Hemoglobin 8.1 g/dL (12.0-16.0); Platelet Count 40 thou/uL (130-400)
[2021-11-03 05:35] LABS: Anion Gap 19 mmol/L (10-20); BUN (Urea Nitrogen) 22 mg/dL (9.8-20.1); Calc. Creatinine Clearance 17 mL/min (70-130); Calcium 8.3 mg/dL (7.8-10.44); Carbon Dioxide 26 mmol/L (23-31); Chloride 97 mmol/L (98-107); Glucose 170 mg/dL (80-115); Potassium 4.7 mmol/L (3.5-5.1); Sodium 137 mmol/L (136-145)
[2021-11-03] MEDS ORDERED: Heparin 10,000 UNITS/ 10 ML VIAL ONE (08:26)
[2021-11-03] MEDS: Rifaximin 550 MG TAB PO SCH ×2 (12:40→20:29)
[2021-11-03] MEDS: Nadolol 40 MG TAB PO SCH (12:40)
[2021-11-03] MEDS: Ondansetron PF 4 MG/2 ML Vial IVP PRN (13:43)
[2021-11-03] MEDS: Sodium Chloride 0.9% 1,000 ML IV SCH (15:27)
[2021-11-03 15:38] LABS: SARS-CoV-2 PCR by NAA Not Detected (NotDetected)
[2021-11-03] MEDS ORDERED: Sevelamer Carbonate 800 MG TAB PO SCH (19:00)
[2021-11-04] MEDS: Sodium Chloride 0.9% 1,000 ML IV SCH (05:17)
[2021-11-04 06:38] LABS: Hemoglobin 8.3 g/dL (12.0-16.0); Platelet Count 35 thou/uL (130-400)
[2021-11-04 06:53] LABS: Anion Gap 14 mmol/L (10-20); BUN (Urea Nitrogen) 14 mg/dL (9.8-20.1); Calc. Creatinine Clearance 22 mL/min (70-130); Calcium 9.4 mg/dL (7.8-10.44); Carbon Dioxide 28 mmol/L (23-31); Chloride 99 mmol/L (98-107); Glucose 148 mg/dL (80-115); Potassium 3.6 mmol/L (3.5-5.1); Sodium 137 mmol/L (136-145)
[2021-11-04] MEDS: Rifaximin 550 MG TAB PO SCH ×2 (10:47→20:54)
[2021-11-04] MEDS: Sevelamer Carbonate 800 MG TAB PO SCH ×3 (10:47→16:49)
[2021-11-04] MEDS: Megestrol Acetate 40 MG TAB PO SCH (10:47)
[2021-11-04] MEDS ORDERED: diphenhydrAMINE 25 MG CAP PO PRN (14:26)
[2021-11-04] MEDS: HumaLOG 300 UNITS/3 ML VIAL SC PRN (16:49)
[2021-11-05 05:59] LABS: Anion Gap 15 mmol/L (10-20); BUN (Urea Nitrogen) 18 mg/dL (9.8-20.1); Calc. Creatinine Clearance 17 mL/min (70-130); Calcium 10.1 mg/dL (7.8-10.44); Carbon Dioxide 27 mmol/L (23-31); Chloride 101 mmol/L (98-107); Glucose 139 mg/dL (80-115); Potassium 3.7 mmol/L (3.5-5.1); Sodium 139 mmol/L (136-145)
[2021-11-05 06:10] LABS: INR-International Normal Ratio 1.9; Prothrombin Time 22.2 sec (12.0-14.7)
[2021-11-05 06:14] LABS: Hemoglobin 8.5 g/dL (12.0-16.0); Platelet Count 35 thou/uL (130-400)
[2021-11-05] MEDS: Rifaximin 550 MG TAB PO SCH (10:04)
[2021-11-05] MEDS: Sevelamer Carbonate 800 MG TAB PO SCH ×2 (10:04→12:33)
[2021-11-05] MEDS: Megestrol Acetate 40 MG TAB PO SCH (10:04)
[2021-11-05 11:47] VITALS: TEMP 97.7
[2021-11-05 12:42] VITALS: BP 90/54
== END 2021-11-05 16:30 | DRG 252 ==
LOC: ERS 21:24 → 2NO 23:46 → OBSVTOIN 10-14 07:30 → 2NO 10-18 15:58
PROVIDERS: ADMIT Internal Medicine; ATTEND Internal Medicine
PROC: 037Y3ZZ Dilation of Upper Artery, Percutaneous Approach (ICD-10-PCS; principal; 2021-10-19)
PROC: B31J1ZZ Fluoroscopy of Left Upper Extremity Arteries using Low Osmolar Contrast (ICD-10-PCS; 2021-10-19)
PROC: 0JH60XZ Insertion of Tunneled Vascular Access Device into Chest Subcutaneous Tissue and Fascia, Open Approach (ICD-10-PCS; 2021-10-22)
PROC: 02HV33Z Insertion of Infusion Device into Superior Vena Cava, Percutaneous Approach (ICD-10-PCS; 2021-10-22)
PROC: B548ZZA Ultrasonography of Superior Vena Cava, Guidance (ICD-10-PCS; 2021-10-22)
PROC: 30233K1 Transfusion of Nonautologous Frozen Plasma into Peripheral Vein, Percutaneous Approach (ICD-10-PCS; 2021-10-22)
PROC: 30233N1 Transfusion of Nonautologous Red Blood Cells into Peripheral Vein, Percutaneous Approach (ICD-10-PCS; 2021-10-22)
PROC: 30233R1 Transfusion of Nonautologous Platelets into Peripheral Vein, Percutaneous Approach (ICD-10-PCS; 2021-10-22)
PROC: 5A1D70Z Performance of Urinary Filtration, Intermittent, Less than 6 Hours Per Day (ICD-10-PCS; 2021-10-22)
DX: I13.2 Hypertensive heart and chronic kidney disease with heart failure and with stage 5 chronic kidney disease, or end stage renal disease (principal); I50.33 Acute on chronic diastolic (congestive) heart failure; I21.4 Non-ST elevation (NSTEMI) myocardial infarction; J96.01 Acute respiratory failure with hypoxia; N18.6 End stage renal disease; K76.7 Hepatorenal syndrome; G93.41 Metabolic encephalopathy; N17.9 Acute kidney failure, unspecified; R18.8 Other ascites; E87.2 Acidosis; I85.10 Secondary esophageal varices without bleeding; D68.4 Acquired coagulation factor deficiency; T82.521A Displacement of surgically created arteriovenous shunt, initial encounter; N39.0 Urinary tract infection, site not specified; Z51.5 Encounter for palliative care; Z20.822 Contact with and (suspected) exposure to COVID-19; E11.22 Type 2 diabetes mellitus with diabetic chronic kidney disease; K76.0 Fatty (change of) liver, not elsewhere classified; D63.1 Anemia in chronic kidney disease; D69.6 Thrombocytopenia, unspecified; I95.9 Hypotension, unspecified; K74.69 Other cirrhosis of liver; K80.20 Calculus of gallbladder without cholecystitis without obstruction; E87.5 Hyperkalemia; E66.01 Morbid (severe) obesity due to excess calories; I35.0 Nonrheumatic aortic (valve) stenosis; E88.81 Metabolic syndrome and other insulin resistance; Y84.1 Kidney dialysis as the cause of abnormal reaction of the patient, or of later complication, without mention of misadventure at the time of the procedure; K72.90 Hepatic failure, unspecified without coma; E83.39 Other disorders of phosphorus metabolism; Z88.8 Allergy status to other drugs, medicaments and biological substances; Z79.899 Other long term (current) drug therapy; Z98.890 Other specified postprocedural states; Z80.9 Family history of malignant neoplasm, unspecified; Z87.891 Personal history of nicotine dependence; Z68.32 Body mass index [BMI] 32.0-32.9, adult
CPT/HCPCS: 36415; 36416; 36430; 36901; 70450; 71045; 76700; 76705; 76937; 78451; 80048; 80053; 80061; 80074; 80076; 80306; 80307; 81001; 81003; 81015; 82140; 82553; 83880; 84100; 84443; 84484; 85014; 85018; 85025; 85049; 85610; 85730; 86580; 86706; 86850; 86900; 86901; 87040; 87086; 87340; 87389; 90935; 93005; 93010; 93306; 96365; 96375; A9540; C1751; C1752; G0257; G0378; J0171; J0696; J1644; J1815; J1940; J2270; J2405; J2704; J2765; J3490; J7030; J7050; J7070; P9016; P9035; P9047; P9059; Q5105; S0020; S0179; U0002; U0003; U0005

== ENCOUNTER 2021-11-14 16:19 | Inpatient (IN) | payer MEDICARE, MEDICAID ==
[~2021-11-14 16:19] MED LIST: Iopamidol 370 76% 100 ML VIAL ONE
[2021-11-14 17:22] LABS: Hemoglobin 9.3 g/dL (12.0-16.0); Mean Corpuscular HGB CONC 31.3 g/dL (32.0-36.0); Mean Corpuscular Hemoglobin 36.8 pg (27.0-31.0); RBC Distribution Width 20.1 % (11.5-14.5); Red Blood Cell (RBC) Count 2.53 mill/uL (4.20-5.40); White Blood Cell (WBC) Count 6.9 thou/uL (4.8-10.8)
[2021-11-14 17:23] LABS: Mean Platelet Volume 9.3 fL (7.4-10.4)
[2021-11-14 17:24] LABS: Platelet Count 27 thou/uL (130-400)
[2021-11-14] MEDS ORDERED: Cefepime 2 GM VIAL ONE (17:33)
[2021-11-14 17:45] LABS: Anisocytosis SLIGHT = 6-15 cells (100X) (0-5/hpf); Band 21 % (5-11); Eosinophils 1 % (0-10); Lymphocytes 5 % (21-51); MDiff Complete? YES; Monocytes 5 % (0-10); Neutrophil 68 % (42-75); Platelet Morphology Comment Appears Decreased
[2021-11-14] MEDS ORDERED: Albumin 25% 25 GM/100 ML BOT IVPB SCH ×2 (17:45→23:59)
[2021-11-14 18:12] LABS: CKMB 1.4 ng/mL (0-6.6)
[2021-11-14 18:44] LABS: ALT (SGPT) 35 U/L (8-55); AST (SGOT) 182 U/L (5-34); Albumin 2.6 g/dL (3.4-4.8); Alkaline Phosphatase 125 U/L (40-110); Anion Gap 18 mmol/L (10-20); BUN (Urea Nitrogen) 18 mg/dL (9.8-20.1); Bilirubin, Total 16.5 mg/dL (0.2-1.2); Calc. Creatinine Clearance 0 mL/min (70-130); Calcium 8.4 mg/dL (7.8-10.44); Carbon Dioxide 25 mmol/L (23-31); Chloride 96 mmol/L (98-107); Globulin 3.2 g/dL (2.4-3.5); Glucose 187 mg/dL (80-115); Lipase 625 U/L (8-78); Potassium 3.9 mmol/L (3.5-5.1); Protein, Total 5.8 g/dL (5.8-8.1); Sodium 135 mmol/L (136-145)
[2021-11-14] MEDS ORDERED: Norepinephrine 8 MG/0.9% NS 250 ML ONE (19:15)
[2021-11-14] MEDS ORDERED: Vancomycin 1 GM/200 ML BAG ONE (19:15)
[2021-11-14] MEDS ORDERED: Acetaminophen 325 MG TAB PO PRN (20:34)
[2021-11-14] MEDS ORDERED: Ondansetron PF 4 MG/2 ML Vial IVP PRN (20:34)
[2021-11-14 20:45] LABS: Lactic Acid 2.6 mmol/L (0.5-2.2)
[2021-11-14 20:49] LABS: Troponin I 0.247 ng/mL (< 0.028)
[2021-11-14 22:16] LABS: SARS-CoV-2 NAA Rapid Test Not Detected (NotDetected)
[2021-11-14 23:57] LABS: Troponin I 0.249 ng/mL (< 0.028)
[2021-11-15] MEDS ORDERED: Vancomycin 1 GM in Premix Bag 1 BAG IVPB SCH (00:15)
[2021-11-15] MEDS ORDERED: Vancomycin HCl 1.25 GM in Sodium Chloride 0.9% 250 ML 250 ML IVPB SCH (00:15)
[2021-11-15] MEDS ORDERED: HOLD VANCOMYCIN FOR LEVEL >20 FS SCH (00:15)
[2021-11-15] MEDS ORDERED: Vancomycin HCl 500 MG in Sodium Chloride 0.9% 100 ML IVPB SCH (00:15)
[2021-11-15] MEDS ORDERED: Vancomycin HCl 750 MG in Sodium Chloride 0.9% 250 ML 250 ML IVPB SCH (00:15)
[2021-11-15] MEDS ORDERED: HumaLOG 300 UNITS/3 ML VIAL SC PRN ×2 (00:24)
[2021-11-15] MEDS ORDERED: Dextrose 5% in Water 1,000 ML IV PRN (00:24)
[2021-11-15 01:18] LABS: Lactic Acid 2.6 mmol/L (0.5-2.2)
[2021-11-15 04:52] LABS: #Eosinphils 0.2 thou/uL (0.0-0.7); #Lymphocytes 0.5 thou/uL (1.20-3.40); #Monocytes 0.6 thou/uL (0.11-0.59); #Neutrophils 4.2 thou/uL (1.40-6.50); %Basophils 0.4 % (0.0-1.0); %Eosinophils 3.6 % (0.0-10.0); %Lymphocytes 8.4 % (21.0-51.0); %Monocytes 10.1 % (0.0-10.0); %Neutrophils 77.6 % (42.0-75.0); Hemoglobin 7.9 g/dL (12.0-16.0); Mean Corpuscular HGB CONC 32.3 g/dL (32.0-36.0); Mean Corpuscular Hemoglobin 38.2 pg (27.0-31.0); Mean Platelet Volume 9.7 fL (7.4-10.4); Platelet Count 24 thou/uL (130-400); Red Blood Cell (RBC) Count 2.08 mill/uL (4.20-5.40); White Blood Cell (WBC) Count 5.4 thou/uL (4.8-10.8)
[2021-11-15 05:00] LABS: ALT (SGPT) 31 U/L (8-55); AST (SGOT) 150 U/L (5-34); Albumin 3.2 g/dL (3.4-4.8); Alkaline Phosphatase 113 U/L (40-110); Anion Gap 13 mmol/L (10-20); BUN (Urea Nitrogen) 20 mg/dL (9.8-20.1); Bilirubin, Total 17.9 mg/dL (0.2-1.2); Calc. Creatinine Clearance 17 mL/min (70-130); Calcium 8.9 mg/dL (7.8-10.44); Carbon Dioxide 32 mmol/L (23-31); Chloride 95 mmol/L (98-107); Globulin 2.5 g/dL (2.4-3.5); Glucose 175 mg/dL (80-115); Lipase 571 U/L (8-78); Potassium 3.4 mmol/L (3.5-5.1); Protein, Total 5.7 g/dL (5.8-8.1); Sodium 137 mmol/L (136-145)
[2021-11-15 05:03] LABS: Troponin I 0.247 ng/mL (< 0.028)
[2021-11-15 10:36] LABS: INR-International Normal Ratio 2.5; Prothrombin Time 27.6 sec (12.0-14.7)
[2021-11-15] MEDS ORDERED: Pantoprazole 40 MG VIAL IVP SCH (11:30)
[2021-11-15] MEDS: Lactated Ringer's 1,000 ML IV SCH (15:05)
[2021-11-15] MEDS: Sevelamer Carbonate 800 MG TAB PO SCH ×2 (15:06→18:27)
[2021-11-15] MEDS: Folic Acid 1 MG TAB PO SCH (15:06)
[2021-11-15] MEDS: Rifaximin 550 MG TAB PO SCH ×2 (15:08→21:00)
[2021-11-15] MEDS: Cefepime 0.5 GM, Admixture Fee 1 EACH in Sodium Chloride 0.9% 100 ML IVPB SCH (15:31)
[2021-11-15] MEDS ORDERED: Digoxin 0.5 MG/2 ML AMP ONE (18:26)
[2021-11-15] MEDS ORDERED: Digoxin 0.5 MG/2 ML AMP SLOW IVP SCH (18:30)
[2021-11-15] MEDS ORDERED: Amiodarone 150 MG in Dextrose 5% in Water 100 ML IVPB SCH (18:30)
[2021-11-15] MEDS: Amiodarone 450 MG in Dextrose 5% in Water 250 ML IVPB SCH (19:51)
[2021-11-16 05:22] LABS: ALT (SGPT) 35 U/L (8-55); AST (SGOT) 194 U/L (5-34); Albumin 3.2 g/dL (3.4-4.8); Alkaline Phosphatase 132 U/L (40-110); Anion Gap 18 mmol/L (10-20); BUN (Urea Nitrogen) 26 mg/dL (9.8-20.1); Bilirubin, Total 19.8 mg/dL (0.2-1.2); Calc. Creatinine Clearance 15 mL/min (70-130); Calcium 9.1 mg/dL (7.8-10.44); Carbon Dioxide 28 mmol/L (23-31); Chloride 94 mmol/L (98-107); Globulin 2.6 g/dL (2.4-3.5); Glucose 149 mg/dL (80-115); Potassium 4.1 mmol/L (3.5-5.1); Protein, Total 5.8 g/dL (5.8-8.1); Sodium 136 mmol/L (136-145)
[2021-11-16 05:26] LABS: Vancomycin, Trough 9.9 ug/mL
[2021-11-16 05:54] LABS: INR-International Normal Ratio 2.5; Prothrombin Time 27.8 sec (12.0-14.7)
[2021-11-16] MEDS ORDERED: traMADol HCl 50 MG TAB PO SCH (06:00)
[2021-11-16 06:05] LABS: #Eosinphils 0.2 thou/uL (0.0-0.7); #Lymphocytes 0.8 thou/uL (1.20-3.40); #Monocytes 0.9 thou/uL (0.11-0.59); #Neutrophils 7.2 thou/uL (1.40-6.50); %Basophils 0.3 % (0.0-1.0); %Eosinophils 2.4 % (0.0-10.0); %Lymphocytes 8.8 % (21.0-51.0); %Monocytes 9.8 % (0.0-10.0); %Neutrophils 78.7 % (42.0-75.0); Hemoglobin 8.3 g/dL (12.0-16.0); Mean Corpuscular Hemoglobin 37.4 pg (27.0-31.0); Mean Platelet Volume 9.4 fL (7.4-10.4); Platelet Count 30 thou/uL (130-400); RBC Distribution Width 19.7 % (11.5-14.5); Red Blood Cell (RBC) Count 2.21 mill/uL (4.20-5.40); White Blood Cell (WBC) Count 9.1 thou/uL (4.8-10.8)
[2021-11-16 06:11] VITALS: BMI 34.0
[2021-11-16] MEDS ORDERED: Heparin 10,000 UNITS/ 10 ML VIAL ONE (09:19)
[2021-11-16] MEDS: Pantoprazole 40 MG VIAL IVP SCH (12:23)
[2021-11-16] MEDS: Sevelamer Carbonate 800 MG TAB PO SCH ×3 (12:56→19:25)
[2021-11-16] MEDS: Rifaximin 550 MG TAB PO SCH ×2 (12:57→20:17)
[2021-11-16] MEDS: Folic Acid 1 MG TAB PO SCH (15:46)
[2021-11-16] MEDS: Cefepime 0.5 GM, Admixture Fee 1 EACH in Sodium Chloride 0.9% 100 ML IVPB SCH (15:50)
[2021-11-16] MEDS: Amiodarone 450 MG in Dextrose 5% in Water 250 ML IVPB SCH (19:25)
[2021-11-17 03:39] LABS: Actual Bicarbonate (HCO3a) 30.9 mEq/L (22-28); Base Excess (BEa) 1.4 mEq/L (-2.0 to +3.0); Calcium, Ionized (arterial) 1.06 mmol/L (1.12-1.30); Carboxyhemoglobin (COHb) 2.2 gm% (0.0-3.0); Hemoglobin (Hb) 9.3 g/dL (12.0-16.0); O2 Tension (PaO2), arterial 104.8 mmHg (> 80.0); Potassium - ABG Lab 4.18 mmol/L (3.70-5.30)
[2021-11-17] MEDS ORDERED: Lorazepam 2 MG/ML VIAL ONE (04:23)
[2021-11-17] MEDS ORDERED: Propofol 1,000 MG/100 ML VIAL IV ONE (04:23)
[2021-11-17] MEDS ORDERED: Lorazepam 2 MG/ML VIAL SLOW IVP PRN (04:30)
[2021-11-17] MEDS ORDERED: Ventilator Sedation Protocol 1 EACH FS SCH (04:30)
[2021-11-17] MEDS ORDERED: Propofol BOLUS 1,000 MG/100 ML VIAL IV PRN (04:30)
[2021-11-17] MEDS ORDERED: Sodium Chloride 0.9% 1,000 ML IV SCH (04:30)
[2021-11-17] MEDS: Norepinephrine 8 MG/0.9% NS 250 ML IVPB PRN ×2 (04:30→21:12)
[2021-11-17] MEDS ORDERED: DISCONTINUE PREVIOUS NARCOTIC PAIN MEDICATIONS AND BENZODIAZEPINES FS SCH (04:30)
[2021-11-17] MEDS ORDERED: Fentanyl BOLUS 250 ML IVPB PRN (04:30)
[2021-11-17] MEDS ORDERED: Morphine 4 MG/ML VIAL SLOW IVP PRN (04:30)
[2021-11-17 05:05] LABS: ALV-art Gradient 504.075 mmHg (0-20); CO2 Tension 83.3 mmHg (35.0-45.0); Puncture Site RRA; pH, Arterial 7.19 (7.35-7.45)
[2021-11-17] MEDS: fentaNYL Citrate-0.9 % NaCl/PF 100 ML IV SCH ×2 (05:15→21:21)
[2021-11-17 06:27] LABS: ALT (SGPT) 47 U/L (8-55); AST (SGOT) 270 U/L (5-34); Albumin 2.9 g/dL (3.4-4.8); Alkaline Phosphatase 143 U/L (40-110); Anion Gap 15 mmol/L (10-20); BUN (Urea Nitrogen) 19 mg/dL (9.8-20.1); Bilirubin, Total 20.5 mg/dL (0.2-1.2); Calc. Creatinine Clearance 20 mL/min (70-130); Calcium 8.6 mg/dL (7.8-10.44); Carbon Dioxide 31 mmol/L (23-31); Chloride 95 mmol/L (98-107); Globulin 2.8 g/dL (2.4-3.5); Glucose 108 mg/dL (80-115); Potassium 4.5 mmol/L (3.5-5.1); Protein, Total 5.7 g/dL (5.8-8.1); Sodium 136 mmol/L (136-145)
[2021-11-17 06:28] LABS: #Eosinphils 0.1 thou/uL (0.0-0.7); #Lymphocytes 0.9 thou/uL (1.20-3.40); #Monocytes 0.9 thou/uL (0.11-0.59); #Neutrophils 8.4 thou/uL (1.40-6.50); %Basophils 0.1 % (0.0-1.0); %Eosinophils 0.9 % (0.0-10.0); %Lymphocytes 8.3 % (21.0-51.0); %Monocytes 8.9 % (0.0-10.0); %Neutrophils 81.9 % (42.0-75.0); Anisocytosis SLIGHT = 6-15 cells (100X) (0-5/hpf); Hemoglobin 8.5 g/dL (12.0-16.0); MDiff Complete? YES; Macrocytosis MODERATE=16-30 cells (100X) (0-5/hpf); Mean Corpuscular HGB CONC 31.6 g/dL (32.0-36.0); Mean Corpuscular Hemoglobin 38.3 pg (27.0-31.0); Mean Platelet Volume 9.5 fL (7.4-10.4); Platelet Count 35 thou/uL (130-400); Platelet Morphology Comment Appears Decreased; RBC Distribution Width 19.8 % (11.5-14.5); Red Blood Cell (RBC) Count 2.23 mill/uL (4.20-5.40); White Blood Cell (WBC) Count 10.3 thou/uL (4.8-10.8)
[2021-11-17 07:47] LABS: Actual Bicarbonate (HCO3a) 23.3 mEq/L (22-28); Base Excess (BEa) 0.4 mEq/L (-2.0 to +3.0); CO2 Tension 30.8 mmHg (35.0-45.0); Calcium, Ionized (arterial) 0.99 mmol/L (1.12-1.30); Carboxyhemoglobin (COHb) 1.8 gm% (0.0-3.0); O2 Tension (PaO2), arterial 69.2 mmHg (> 80.0); Potassium - ABG Lab 4.19 mmol/L (3.70-5.30)
[2021-11-17 07:50] LABS: Puncture Site LRA
[2021-11-17] MEDS: Folic Acid 1 MG TAB PO SCH (09:48)
[2021-11-17] MEDS: Pantoprazole 40 MG VIAL IVP SCH (09:48)
[2021-11-17] MEDS: Sevelamer Carbonate 800 MG TAB PO SCH ×3 (09:48→18:51)
[2021-11-17] MEDS: Rifaximin 550 MG TAB PO SCH ×2 (09:48→20:57)
[2021-11-17] MEDS: Lactated Ringer's 1,000 ML IV SCH (10:26)
[2021-11-17] MEDS: Propofol 1,000 MG/100 ML VIAL IV PRN ×2 (13:52→20:57)
[2021-11-17] MEDS ORDERED: Meropenem 500 MG in Sodium Chloride 0.9% 100 ML IVPB SCH (14:00)
[2021-11-17] MEDS: Dextrose 50% Abboject 50 ML SYRINGE SLOW IVP PRN (18:51)
[2021-11-18] MEDS: Meropenem 500 MG in Sodium Chloride 0.9% 100 ML IVPB SCH ×2 (02:03→14:06)
[2021-11-18] MEDS: Norepinephrine 8 MG/0.9% NS 250 ML IVPB PRN ×2 (02:04→06:03)
[2021-11-18 04:27] VITALS: TEMP 99.1
[2021-11-18] MEDS: Dextrose 50% Abboject 50 ML SYRINGE SLOW IVP PRN (04:35)
[2021-11-18 05:07] LABS: Anion Gap 22 mmol/L (10-20); BUN (Urea Nitrogen) 23 mg/dL (9.8-20.1); Calc. Creatinine Clearance 18 mL/min (70-130); Calcium 8.2 mg/dL (7.8-10.44); Carbon Dioxide 21 mmol/L (23-31); Chloride 98 mmol/L (98-107); Potassium 4.6 mmol/L (3.5-5.1); Sodium 136 mmol/L (136-145)
[2021-11-18 05:11] LABS: Glucose 40 mg/dL (80-115)
[2021-11-18 05:25] LABS: Hemoglobin 9.2 g/dL (12.0-16.0); Mean Corpuscular HGB CONC 32.9 g/dL (32.0-36.0); Mean Corpuscular Hemoglobin 39.1 pg (27.0-31.0); Mean Platelet Volume 10.7 fL (7.4-10.4); Platelet Count 30 thou/uL (130-400); RBC Distribution Width 19.7 % (11.5-14.5); Red Blood Cell (RBC) Count 2.34 mill/uL (4.20-5.40)
[2021-11-18 06:46] LABS: Anisocytosis SLIGHT = 6-15 cells (100X) (0-5/hpf); Band 14 % (5-11); Lymphocytes 12 % (21-51); MDiff Complete? YES; Monocytes 2 % (0-10); Neutrophil 72 % (42-75); Platelet Morphology Comment Appears Decreased
[2021-11-18] MEDS: Pantoprazole 40 MG VIAL IVP SCH (09:05)
[2021-11-18 12:48] LABS: ALT (SGPT) 72 U/L (8-55); AST (SGOT) 417 U/L (5-34); Albumin 2.4 g/dL (3.4-4.8); Alkaline Phosphatase 146 U/L (40-110); Bilirubin, Direct 9.9 mg/dL (0.1-0.3); Bilirubin, Total 16.4 mg/dL (0.2-1.2); Protein, Total 5.1 g/dL (5.8-8.1)
[2021-11-18] MEDS: Sevelamer Carbonate 800 MG TAB PO SCH (14:05)
[2021-11-18] MEDS: Rifaximin 550 MG TAB PO SCH (14:06)
[2021-11-18] MEDS: Folic Acid 1 MG TAB PO SCH (14:06)
[2021-11-18 14:19] VITALS: BP 80/43
== END 2021-11-18 15:02 | disposition expired | DRG 871 ==
LOC: ERS 16:19 → CCU 20:13
PROVIDERS: ADMIT Internal Medicine; ATTEND Internal Medicine
PROC: 3E033XZ Introduction of Vasopressor into Peripheral Vein, Percutaneous Approach (ICD-10-PCS; principal; 2021-11-14)
PROC: 3E03329 Introduction of Other Anti-infective into Peripheral Vein, Percutaneous Approach (ICD-10-PCS; 2021-11-14)
PROC: 5A1945Z Respiratory Ventilation, 24-96 Consecutive Hours (ICD-10-PCS; 2021-11-17)
PROC: 5A1D70Z Performance of Urinary Filtration, Intermittent, Less than 6 Hours Per Day (ICD-10-PCS; 2021-11-17)
PROC: 06HY33Z Insertion of Infusion Device into Lower Vein, Percutaneous Approach (ICD-10-PCS; 2021-11-17)
PROC: 0B918ZZ Drainage of Trachea, Via Natural or Artificial Opening Endoscopic (ICD-10-PCS; 2021-11-17)
PROC: 0BH18EZ Insertion of Endotracheal Airway into Trachea, Via Natural or Artificial Opening Endoscopic (ICD-10-PCS; 2021-11-17)
DX: A41.9 Sepsis, unspecified organism (principal); R65.21 Severe sepsis with septic shock; J18.9 Pneumonia, unspecified organism; N18.6 End stage renal disease; J96.21 Acute and chronic respiratory failure with hypoxia; K85.91 Acute pancreatitis with uninfected necrosis, unspecified; I21.A1 Myocardial infarction type 2; J96.22 Acute and chronic respiratory failure with hypercapnia; K72.00 Acute and subacute hepatic failure without coma; I50.33 Acute on chronic diastolic (congestive) heart failure; I13.2 Hypertensive heart and chronic kidney disease with heart failure and with stage 5 chronic kidney disease, or end stage renal disease; K92.1 Melena; R18.8 Other ascites; D61.818 Other pancytopenia; D68.4 Acquired coagulation factor deficiency; I48.92 Unspecified atrial flutter; Z51.5 Encounter for palliative care; Z66 Do not resuscitate; Z20.822 Contact with and (suspected) exposure to COVID-19; E11.22 Type 2 diabetes mellitus with diabetic chronic kidney disease; K76.0 Fatty (change of) liver, not elsewhere classified; D63.1 Anemia in chronic kidney disease; K80.20 Calculus of gallbladder without cholecystitis without obstruction; E80.6 Other disorders of bilirubin metabolism; I35.0 Nonrheumatic aortic (valve) stenosis; D73.1 Hypersplenism; K74.69 Other cirrhosis of liver; E87.5 Hyperkalemia; Z78.1 Physical restraint status; I25.2 Old myocardial infarction; Z99.81 Dependence on supplemental oxygen; Z99.2 Dependence on renal dialysis; Z88.8 Allergy status to other drugs, medicaments and biological substances; Z79.899 Other long term (current) drug therapy; Z95.828 Presence of other vascular implants and grafts; Z80.9 Family history of malignant neoplasm, unspecified; Z87.891 Personal history of nicotine dependence; Z95.5 Presence of coronary angioplasty implant and graft; D69.6 Thrombocytopenia, unspecified
CPT/HCPCS: 36415; 36416; 36600; 71045; 74177; 76705; 80048; 80053; 80076; 80202; 82140; 82553; 82805; 83605; 83690; 83880; 84484; 85007; 85025; 85027; 85610; 87040; 87071; 90935; 93005; 93010; 94002; 94003; 96365; 96366; 96367; 96368; C9113; G0257; J0282; J0692; J1160; J1644; J2060; J2185; J2704; J3370; J3490; J7070; J7120; P9047; Q9967; U0002